=== PATIENT | female | born 1940 | race Caucasian/White ===

== ENCOUNTER 2018-09-24 06:48 | Day surgery (SDC) | payer MEDICARE, OTHER ==
[2018-09-24] MEDS ORDERED: Cefuroxime 10 MG/ML SYRINGE EYERT SCH (07:00)
[2018-09-24] MEDS ORDERED: Pilocarpine 4% Ophth Soln 15 ML Bot EYERT SCH (07:00)
[2018-09-24] MEDS ORDERED: Lidocaine 1% PF 2 ML SDV INJECT SCH (07:00)
[2018-09-24] MEDS: Polymyxin B/Trimethoprim 10 ML Bottle EYERT SCH ×3 (07:08→08:43)
[2018-09-24] MEDS: Brimonidine 0.2% Ophth Soln 5 ML Bottle EYERT SCH ×3 (07:13→08:43)
[2018-09-24] MEDS: Phenylephrine 2.5% Ophth Soln 2 ML Bot EYERT SCH ×5 (07:18→08:15)
[2018-09-24] MEDS: Tropicamide 1% Ophth Soln 15 ML Bottle EYERT SCH ×4 (07:23→08:02)
--- NOTE | 2018-09-24 07:26 | PCM.PREANE ---
Preanesthetic Assessment - Anesthesia/Transfusion/Family Hx Anesthesia History: Prior Anesthesia Without Reaction Family History of Anesthesia Reaction: No Transfusion History: Prior Transfusion Without Reaction - Review of Systems General: No Symptoms Pulmonary: No Symptoms Cardiovascular: No Symptoms Gastrointestinal: No Symptoms Neurological: No Symptoms Other: Reports: None - Physical Assessment NPO Status Date: 09/23/18 NPO Status Time: 19:00 Pulse: 92 O2 Sat by Pulse Oximetry: 92 Respiratory Rate: 16 Blood Pressure: 120/47 Temperature: 97.1 C Vital Signs: Last Vital Signs Temp 36.2 C 09/24/18 07:00 Pulse 57 L 09/24/18 07:00 Resp 16 09/24/18 07:00 BP 120/47 L 09/24/18 07:00 Pulse Ox 92 L 09/24/18 07:00 Height: 1.68 m Weight: 61.235 kg ASA Class: 2 Mental Status: Alert & Oriented x3 Airway Class: Mallampati = 2 Dentition: Reports: Normal Dentition Thyro-Mental Finger Breadths: 3 Mouth Opening Finger Breadths: 3 Lungs: Clear to Auscultation, Normal Respiratory Effort Cardiovascular: Regular Rate, Regular Rhythm - Allergies Allergies/Adverse Reactions: Allergies Allergy/AdvReac Type Severity Reaction Status Date / Time No Known Allergies Allergy Verified 09/23/18 15:38 - Anesthesia Plan Beta Carol: Metoprolol - Acknowledgements Anesthesia Type Planned: MAC Pt an Appropriate Candidate for the Planned Anesthesia: Yes Alternatives and Risks of Anesthesia Discussed w Pt/Guardian: Yes Pt/Guardian Understands and Agrees with Anesthesia Plan: Yes PreAnesthesia Questionnaire HEENT History: Reports: Cataract, Glaucoma Cardiovascular History: Reports: Afib, Hypertension Respiratory History: Reports: None Gastrointestinal History: Reports: None Genitourinary History: Reports: None Musculoskeletal History: Reports: None Neurological History: Reports: 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) Psychiatric History: Reports: None Endocrine/Metabolic History: Reports: None Hematologic History: Reports: None Immunologic History: Reports: None Oncologic (Cancer) History: Reports: None, Other (See Below) (melanoma 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) Dermatologic History: Reports: None - Past Surgical History Head Surgeries/Procedures: Reports: None HEENT Surgical History: Reports: Cataract Surgery GI Surgical History: Reports: Appendectomy Female Surgical History: Reports: Hysterectomy - SUBSTANCE USE Smoking Status *Q: Never Smoker - HOME MEDS Home Medications: Home Meds Furosemide [Lasix] 40 mg PO DAILY #60 tablet 09/26/16 [Rx] Metoprolol Succinate 50 mg PO DAILY #30 tab.er.24h 09/26/16 [Rx] Latanoprost 1 drop EYEBOTH BEDTIME 08/19/18 [History] Potassium Chloride [Klor-Con M20] 20 meq PO DAILY 08/19/18 [History] Simvastatin 10 mg PO BEDTIME 08/19/18 [History] Warfarin Sodium [Jantoven] 2 mg PO MOWEFRSA 08/19/18 [History] Warfarin Sodium [Jantoven] 4 mg PO SUTUTH 08/19/18 [History] Losartan [Cozaar] 25 mg PO DAILY 09/24/18 [History] - CURRENT (IN HOUSE) MEDS Current Meds: Current Medications Brimonidine Tartrate (Alphagan 0.2% Ophth Soln) 0 ml EYERT ASDIRECTED BRIDGET Stop: 09/24/18 18:00 Last Admin: 09/24/18 07:13 Dose: 1 drop Cefuroxime Sodium (Zinacef) 0 mg EYERT ASDIRECTED BRIDGET Stop: 09/24/18 18:00 Lidocaine HCl (Xylocaine-Mpf 1%) 1 ml INJECT ASDIRECTED BRIDGET Stop: 09/24/18 18:00 Phenylephrine HCl (Justin-Synephrine 2.5% Ophth Soln) 0 ml EYERT ASDIRECTED BRIDGET Stop: 09/24/18 18:00 Last Admin: 09/24/18 07:18 Dose: 1 drop Pilocarpine HCl (Pilocar 4% Ophth Soln) 0 ml EYERT ASDIRECTED BRIDGET Stop: 09/24/18 18:00 Polymyxin/Trimethoprim Sulfate (Polytrim Ophth Soln) 0 ml EYERT ASDIRECTED BRIDGET Stop: 09/24/18 18:00 Last Admin: 09/24/18 07:08 Dose: 1 drop Tetracaine HCl (Tetracaine 0.5% Steri-Unit Kasia) 0 ml EYERT ASDIRECTED BRIDGET Stop: 09/24/18 18:00 Tropicamide (Mydriacyl 1% Ophth Soln) 0 ml EYERT ASDIRECTED BRIDGET Stop: 09/24/18 18:00
[2018-09-24] MEDS: Tetracaine HCl/PF 0.5% 4 ML Bottle EYERT SCH ×2 (08:06→08:32)
--- NOTE | 2018-09-24 08:46 | PCM48HPAN ---
Post Anesthesia Note - EVALUATION WITHIN 48HRS OF ANESTHETIC Vital Signs in Normal Range: Yes Patient Participated in Evaluation: Yes Respiratory Function Stable: Yes Airway Patent: Yes Cardiovascular Function Stable: Yes Hydration Status Stable: Yes Pain Control Satisfactory: Yes Nausea and Vomiting Control Satisfactory: Yes Mental Status Recovered: Yes Pulse Rate: 66 SaO2: 96 Resp Rate: 13 Temperature: 97.1 C Blood Pressure: 125/62
[2018-09-24 09:05] VITALS: BP 129/55
== END 2018-09-24 08:54 | disposition home or self-care (01) ==
LOC: JD.SDS 06:48
PROVIDERS: ATTEND Ophthalmology
DX: H25.811 Combined forms of age-related cataract, right eye (principal); I10 Essential (primary) hypertension; I69.928 Other speech and language deficits following unspecified cerebrovascular disease; I48.91 Unspecified atrial fibrillation; E78.00 Pure hypercholesterolemia, unspecified; Z98.42 Cataract extraction status, left eye; Z96.1 Presence of intraocular lens; Z79.01 Long term (current) use of anticoagulants; Z79.899 Other long term (current) drug therapy
CPT/HCPCS: 66984; A9270; J0697; C1780; J2001

== ENCOUNTER → 2021-01-18 | Day surgery (SDC) | payer MEDICARE, BC ==
[2021-01-18] MEDS: Brimonidine 0.2% Ophth Soln 5 ML Bottle EYEBOTH SCH ×2 (07:37→08:28)
[2021-01-18] MEDS: Phenylephrine 2.5% Ophth Soln 2 ML Bot EYEBOTH SCH ×2 (07:42→07:52)
[2021-01-18] MEDS: Tropicamide 1% Ophth Soln 15 ML Bottle EYEBOTH SCH ×2 (07:47→07:57)
[2021-01-18 14:38] VITALS: BP 107/65; PULSE 70
== END ==
LOC: JD.SDS 07:20
PROVIDERS: ATTEND Ophthalmology
DX: H26.493 Other secondary cataract, bilateral (principal); Z96.1 Presence of intraocular lens; H40.1434 Capsular glaucoma with pseudoexfoliation of lens, bilateral, indeterminate stage; H16.223 Keratoconjunctivitis sicca, not specified as Sjogren's, bilateral; E78.00 Pure hypercholesterolemia, unspecified; I10 Essential (primary) hypertension; Z86.73 Personal history of transient ischemic attack (TIA), and cerebral infarction without residual deficits; Z90.49 Acquired absence of other specified parts of digestive tract; Z79.899 Other long term (current) drug therapy

== ENCOUNTER 2021-10-02 08:36 | Emergency (ER) | payer BC, MEDICARE ==
[2021-10-02 09:00] VITALS: BP 100/67; PULSE 92
[2021-10-02] MEDS ORDERED: Ondansetron 4 MG/2 ML SDV IVPUSH ONE ×2 (09:17→16:04)
[2021-10-02] MEDS ORDERED: Sodium Chloride 0.9% 10 ML Syringe FLUSH PRN (09:17)
[2021-10-02] MEDS ORDERED: Sodium Chloride 0.9% 1,000 ML IV SCH ×2 (09:30→11:30)
[2021-10-02 10:37] LABS: CORONAVIRUS COVID-19 NAA POSITIVE (NEGATIVE)
[2021-10-02] MEDS ORDERED: Ondansetron 4 MG/2 ML SDV ONE (15:56)
== END 2021-10-02 16:00 ==
LOC: JD.ED 08:36
DX: U07.1 COVID-19 (principal); N28.9 Disorder of kidney and ureter, unspecified; E86.0 Dehydration; I48.11 Longstanding persistent atrial fibrillation; I10 Essential (primary) hypertension; Z86.73 Personal history of transient ischemic attack (TIA), and cerebral infarction without residual deficits; Z79.01 Long term (current) use of anticoagulants; Z79.899 Other long term (current) drug therapy; Z20.822 Contact with and (suspected) exposure to COVID-19
CPT/HCPCS: 0241U; 36415; 71045; 74176; 80053; 81001; 83690; 83735; 84484; 85025; 85610; 85730; 86140; 87086; 87088; 87186; 93005; 96374; 96376; 99285; J2405; J7030; 93010

== ENCOUNTER 2023-05-23 13:16 | Inpatient (IN) | payer MEDICARE, BC ==
[2023-05-23] MEDS ORDERED: Sodium Chloride 0.9% 10 ML Syringe FLUSH PRN (13:41)
[2023-05-23] MEDS ORDERED: Diltiazem 25 MG/5 ML SDV IVPUSH ONE (13:44)
[2023-05-23] MEDS ORDERED: Sodium Chloride 0.9% 1,000 ML IV SCH ×2 (13:45→15:30)
[2023-05-23] MEDS: Diltiazem 125 MG in Sodium Chloride 0.9% 100 ML IV SCH (14:29)
[2023-05-23 14:33] LABS: BASOPHILS ABSOLUTE AUTO 0.3 K/mm3 (0.0-0.2); BASOPHILS PERCENT AUTO 1.6 % (0.0-1.0); EOSINOPHILS PERCENT AUTO 0.2 % (0.0-6.0); HEMATOCRIT 32.6 % (37.0-47.0); HEMOGLOBIN 9.7 gm/dl (12.0-16.0); IMMATURE GRAN ABSOLUTE AUTO 2.37 K/mm3 (0.00-0.05); IMMATURE GRAN PERCENT AUTO 12.4 % (0.0-0.4); LYMPHOCYTES ABSOLUTE AUTO 0.2 K/mm3 (1.0-4.8); LYMPHOCYTES PERCENT AUTO 1.3 % (24.0-44.0); MEAN CORPUSCULAR HEMOGLOBIN 22.9 pg (28.0-32.0); MEAN CORPUSCULAR HGB CONC 29.8 g/dl (32.0-36.0); MEAN CORPUSCULAR VOLUME 76.9 fl (83.0-99.0); MONOCYTES ABSOLUTE AUTO 3.7 K/mm3 (0.0-0.8); MONOCYTES PERCENT AUTO 19.2 % (0.0-8.0); NEUTROPHILS ABSOLUTE AUTO 12.5 K/mm3 (1.8-7.7); NEUTROPHILS PERCENT AUTO 65.3 % (41.0-71.0); NRBC ABSOLUTE 7.69 (0.00-0.02); NRBC PERCENT 40.3 % (0.0-0.2); PLATELET COUNT,PLT 39 K/mm3 (150-400); RED BLOOD CELL COUNT 4.24 M/mm3 (4.10-5.30); WHITE BLOOD CELL COUNT,WBC 19.08 K/mm3 (3.9-11.3)
[2023-05-23 14:58] LABS: INR 4.65; PROTHROMBIN TIME 44.4 SECONDS (9.7-12.0)
[2023-05-23 14:59] LABS: PTT,PARTIAL THROMBOPLSTIN TIME 42.7 SECONDS (21.7-31.4)
[2023-05-23 15:02] LABS: A/G RATIO 0.6 (1-2); ALBUMIN 2.7 g/dl (3.4-5.0); ANION GAP 18.6 (5-15); BILIRUBIN TOTAL 0.8 mg/dL (0.2-1.0); C-REACTIVE PROTEIN 8.8 mg/dL (<1.0); CREATININE 1.5 mg/dL (0.55-1.02); EST CRCL DRUG DOSING (CG) 24.99 mL/min; MAGNESIUM 2.1 mg/dL (1.8-2.4); POTASSIUM,K 5.6 mEq/L (3.5-5.1); PROTEIN TOTAL,TP 7.2 g/dl (6.4-8.2)
[2023-05-23 15:12] LABS: LACTIC ACID 3.6 mmol/L (0.4-2.0)
[2023-05-23] MEDS ORDERED: cefTRIAXone 2 GM in Sodium Chloride 0.9% 100 ML IV ONE (15:14)
[2023-05-23 15:17] LABS: APPEARANCE,URINE CLEAR (Clear); BILIRUBIN,URINE NEGATIVE (Negative); COLOR,URINE YELLOW (Yellow); GLUCOSE,URINE NEGATIVE (Negative); KETONES,URINE NEGATIVE (Negative); LEUKOCYTE ESTERASE,URINE NEGATIVE (Negative); NITRITE,URINE NEGATIVE (Negative); OCCULT BLOOD,URINE TRACE-LYSED (Negative); PH,URINE 5.5 (5.0-8.0); PROTEIN,URINE 1+ (Negative); UROBILINOGEN,URINE 0.2 (0.2-1.0)
[2023-05-23 15:26] LABS: CORONAVIRUS COVID-19 NAA NEGATIVE (NEGATIVE); INFLUENZA A NAA NEGATIVE (NEGATIVE); RESPIRATORY SYNCYTIAL VIR NAA NEGATIVE (NEGATIVE)
[2023-05-23 15:27] LABS: BACTERIA,URINE MODERATE /hpf (FEW); MUCUS,URINE FEW /hpf (FEW); RBC,URINE 0-5 /hpf (0-5); WBC,URINE 0-5 /hpf (0-5)
[2023-05-23 15:48] LABS: SLIDE REVIEW ABNORMAL SMEAR
[2023-05-23] MEDS ORDERED: Piperacillin/Tazobactam 4.5 GM in Sodium Chloride 0.9% 100 ML IV ONE (16:05)
[2023-05-23] MEDS ORDERED: Ondansetron 4 MG/2 ML SDV IV PRN (17:52)
[2023-05-23] MEDS: Metoprolol Tartrate 25 MG Tab PO SCH (18:10)
[2023-05-23 21:47] LABS: LACTIC ACID 1.4 mmol/L (0.4-2.0)
[2023-05-23] MEDS: Piperacillin/Tazobactam 4.5 GM in Sodium Chloride 0.9% 100 ML IV SCH (22:30)
[2023-05-24] MEDS: Metoprolol Tartrate 25 MG Tab PO SCH ×3 (00:23→11:38)
[2023-05-24] MEDS: Diltiazem 125 MG in Sodium Chloride 0.9% 100 ML IV SCH (01:20)
[2023-05-24] MEDS: Piperacillin/Tazobactam 4.5 GM in Sodium Chloride 0.9% 100 ML IV SCH ×3 (05:38→21:03)
[2023-05-24 06:00] LABS: HEMATOCRIT 27.7 % (37.0-47.0); HEMOGLOBIN 8.3 gm/dl (12.0-16.0); MEAN CORPUSCULAR HEMOGLOBIN 23.1 pg (28.0-32.0); MEAN CORPUSCULAR VOLUME 76.9 fl (83.0-99.0); NRBC PERCENT 36.1 % (0.0-0.2); PLATELET COUNT,PLT 32 K/mm3 (150-400); WHITE BLOOD CELL COUNT,WBC 17.73 K/mm3 (3.9-11.3)
[2023-05-24 06:19] LABS: INR 4.18; PROTHROMBIN TIME 40.2 SECONDS (9.7-12.0)
[2023-05-24 06:37] LABS: ANION GAP 13.6 (5-15); BUN/CREATININE RATIO 16.9 (14-18); C-REACTIVE PROTEIN 7.4 mg/dL (<1.0); CALCIUM 8.2 mg/dL (8.5-10.1); CREATININE 1.3 mg/dL (0.55-1.02); EST CRCL DRUG DOSING (CG) 30.16 mL/min; POTASSIUM,K 4.6 mEq/L (3.5-5.1)
[2023-05-24] MEDS ORDERED: Furosemide 20 MG/2 ML VIAL IVPUSH ONE ×2 (08:00→15:26)
[2023-05-24] MEDS ORDERED: Metoprolol Tartrate 25 MG Tab PO ONE (15:26)
[2023-05-24] MEDS: Acetaminophen 325 MG Tab PO PRN (15:42)
[2023-05-24] MEDS ORDERED: Warfarin Sliding Scale PO SCH (18:00)
[2023-05-24] MEDS: Metoprolol Tartrate 50 MG Tab PO SCH (18:33)
[2023-05-24] MEDS ORDERED: Sodium Chloride 0.9% 250 ML IV ONE (19:25)
[2023-05-24] MEDS: Latanoprost 0.005% Ophth Soln 2.5 ML Bottle EYEBOTH SCH (21:03)
[2023-05-25] MEDS: Metoprolol Tartrate 50 MG Tab PO SCH ×2 (00:01→06:11)
[2023-05-25] MEDS: Acetaminophen 325 MG Tab PO PRN (01:57)
[2023-05-25 05:29] LABS: ANION GAP 11.5 (5-15); BUN/CREATININE RATIO 16.9 (14-18); C-REACTIVE PROTEIN 5.7 mg/dL (<1.0); CREATININE 1.3 mg/dL (0.55-1.02); EST CRCL DRUG DOSING (CG) 30.16 mL/min; POTASSIUM,K 3.5 mEq/L (3.5-5.1)
[2023-05-25 05:31] LABS: HEMATOCRIT 28.2 % (37.0-47.0); HEMOGLOBIN 8.5 gm/dl (12.0-16.0); MEAN CORPUSCULAR HEMOGLOBIN 23.2 pg (28.0-32.0); MEAN CORPUSCULAR HGB CONC 30.1 g/dl (32.0-36.0); MEAN CORPUSCULAR VOLUME 76.8 fl (83.0-99.0); NRBC ABSOLUTE 6.52 (0.00-0.02); NRBC PERCENT 39.1 % (0.0-0.2); PLATELET COUNT,PLT 27 K/mm3 (150-400); RED BLOOD CELL COUNT 3.67 M/mm3 (4.10-5.30); WHITE BLOOD CELL COUNT,WBC 16.67 K/mm3 (3.9-11.3)
[2023-05-25 06:06] LABS: INR 2.59; PROTHROMBIN TIME 25.8 SECONDS (9.7-12.0)
[2023-05-25] MEDS: Piperacillin/Tazobactam 4.5 GM in Sodium Chloride 0.9% 100 ML IV SCH ×3 (06:11→21:44)
[2023-05-25] MEDS ORDERED: Metoprolol Tartrate 25 MG Tab PO SCH (08:15)
[2023-05-25] MEDS: Metoprolol Tartrate 25 MG Tab PO SCH ×3 (12:08→23:41)
[2023-05-25] MEDS ORDERED: Warfarin 4 MG Tab PO SCH (18:00)
[2023-05-25] MEDS: Latanoprost 0.005% Ophth Soln 2.5 ML Bottle EYEBOTH SCH (21:29)
[2023-05-26 05:39] LABS: HEMATOCRIT 27.1 % (37.0-47.0); MEAN CORPUSCULAR HEMOGLOBIN 22.7 pg (28.0-32.0); MEAN CORPUSCULAR HGB CONC 29.5 g/dl (32.0-36.0); NRBC ABSOLUTE 6.51 (0.00-0.02); PLATELET COUNT,PLT 27 K/mm3 (150-400); RED BLOOD CELL COUNT 3.52 M/mm3 (4.10-5.30); WHITE BLOOD CELL COUNT,WBC 15.13 K/mm3 (3.9-11.3)
[2023-05-26 05:41] LABS: ANION GAP 11.7 (5-15); BUN/CREATININE RATIO 21.7 (14-18); C-REACTIVE PROTEIN 4.5 mg/dL (<1.0); CALCIUM 8.3 mg/dL (8.5-10.1); CREATININE 1.2 mg/dL (0.55-1.02); EST CRCL DRUG DOSING (CG) 30.86 mL/min; POTASSIUM,K 3.7 mEq/L (3.5-5.1)
[2023-05-26] MEDS: Piperacillin/Tazobactam 4.5 GM in Sodium Chloride 0.9% 100 ML IV SCH ×3 (05:58→21:29)
[2023-05-26] MEDS: Metoprolol Tartrate 25 MG Tab PO SCH ×3 (05:59→17:45)
[2023-05-26 06:00] LABS: INR 2.2; PROTHROMBIN TIME 22.2 SECONDS (9.7-12.0)
[2023-05-26] MEDS ORDERED: Furosemide 20 MG/2 ML VIAL IVPUSH ONE (08:00)
[2023-05-26 10:38] LABS: RETICULOCYTE COUNT PERCENT 5.28 % (0.50-2.00)
[2023-05-26 11:32] LABS: BAND PERCENT MAN 13 % (0-10); BASOPHILS PERCENT MAN 0 (0.1-1.2); EOSINOPHILS PERCENT MAN 0 % (0.7-5.8); LYMPHOCYTES % ATYPICAL MANUAL 2 %; LYMPHOCYTES PERCENT MAN 10 % (20-40); METAMYELOCYTE PERCENT MAN 13; MONOCYTES PERCENT MAN 23 % (2-10); MYELOCYTE PERCENT MAN 8
[2023-05-26 11:36] LABS: ANISOCYTOSIS 2+ MODERATE
[2023-05-26 11:37] LABS: HYPOCHROMASIA 2+ MODERATE; MICROCYTOSIS 2+ MODERATE; OVALOCYTES 2+ MODERATE; POIKILOCYTOSIS 2+ MODERATE; POLYCHROMASIA 2+ MODERATE; SPHEROCYTES 1+ SLIGHT; TARGET CELLS 1+ SLIGHT; TEARDROP CELLS 1+ SLIGHT
[2023-05-26 11:38] LABS: PLATELET COUNT ESTIMATE MARKED DEC
[2023-05-26] MEDS ORDERED: Warfarin 3 MG Tab PO SCH (18:00)
[2023-05-26] MEDS: Latanoprost 0.005% Ophth Soln 2.5 ML Bottle EYEBOTH SCH (21:34)
[2023-05-26] MEDS: Potassium Chloride 10 MEQ Tab.ER PO SCH (21:34)
[2023-05-27] MEDS: Metoprolol Tartrate 25 MG Tab PO SCH ×2 (01:22→08:01)
[2023-05-27 05:25] LABS: ANION GAP 10.6 (5-15); BUN/CREATININE RATIO 21.5 (14-18); C-REACTIVE PROTEIN 3.1 mg/dL (<1.0); CALCIUM 8.1 mg/dL (8.5-10.1); CREATININE 1.3 mg/dL (0.55-1.02); EST CRCL DRUG DOSING (CG) 28.49 mL/min; POTASSIUM,K 3.6 mEq/L (3.5-5.1)
[2023-05-27 05:28] LABS: BASOPHILS ABSOLUTE AUTO 0.2 K/mm3 (0.0-0.2); BASOPHILS PERCENT AUTO 1.4 % (0.0-1.0); EOSINOPHILS ABSOLUTE AUTO 0.1 K/mm3 (0.0-0.4); EOSINOPHILS PERCENT AUTO 0.9 % (0.0-6.0); HEMATOCRIT 27.6 % (37.0-47.0); HEMOGLOBIN 8.2 gm/dl (12.0-16.0); IMMATURE GRAN ABSOLUTE AUTO 1.75 K/mm3 (0.00-0.05); IMMATURE GRAN PERCENT AUTO 12.4 % (0.0-0.4); LYMPHOCYTES ABSOLUTE AUTO 0.9 K/mm3 (1.0-4.8); LYMPHOCYTES PERCENT AUTO 6.3 % (24.0-44.0); MEAN CORPUSCULAR HEMOGLOBIN 22.8 pg (28.0-32.0); MEAN CORPUSCULAR HGB CONC 29.7 g/dl (32.0-36.0); MEAN CORPUSCULAR VOLUME 76.7 fl (83.0-99.0); MONOCYTES PERCENT AUTO 28.7 % (0.0-8.0); NEUTROPHILS ABSOLUTE AUTO 7.1 K/mm3 (1.8-7.7); NEUTROPHILS PERCENT AUTO 50.3 % (41.0-71.0); NRBC ABSOLUTE 6.62 (0.00-0.02); NRBC PERCENT 47.1 % (0.0-0.2); PLATELET COUNT,PLT 31 K/mm3 (150-400); WHITE BLOOD CELL COUNT,WBC 14.07 K/mm3 (3.9-11.3)
[2023-05-27 05:58] LABS: INR 2.7; PROTHROMBIN TIME 26.8 SECONDS (9.7-12.0)
[2023-05-27 06:02] LABS: SLIDE REVIEW ABNORMAL SMEAR
[2023-05-27] MEDS: Piperacillin/Tazobactam 4.5 GM in Sodium Chloride 0.9% 100 ML IV SCH (06:15)
[2023-05-27] MEDS: Potassium Chloride 10 MEQ Tab.ER PO SCH ×2 (08:01→21:04)
[2023-05-27] MEDS ORDERED: Levofloxacin/Dextrose 5%-Water 500 MG in Premix Bag 1 BAG IV ONE (09:30)
[2023-05-27] MEDS: Furosemide 40 MG/4 ML VIAL IVPUSH SCH (10:04)
[2023-05-27] MEDS ORDERED: Metoprolol Succinate 50 MG Tab.ER PO ONE (14:00)
[2023-05-27] MEDS: Metoprolol Succinate 50 MG Tab.ER PO SCH (21:04)
[2023-05-27] MEDS: Latanoprost 0.005% Ophth Soln 2.5 ML Bottle EYEBOTH SCH (21:07)
[2023-05-28 05:29] LABS: ANION GAP 11.5 (5-15); BUN/CREATININE RATIO 23.3 (14-18); C-REACTIVE PROTEIN 2.6 mg/dL (<1.0); CALCIUM 8.1 mg/dL (8.5-10.1); CREATININE 1.2 mg/dL (0.55-1.02); EST CRCL DRUG DOSING (CG) 31.69 mL/min; POTASSIUM,K 3.5 mEq/L (3.5-5.1)
[2023-05-28 05:34] LABS: BASOPHILS ABSOLUTE AUTO 0.2 K/mm3 (0.0-0.2); BASOPHILS PERCENT AUTO 1.2 % (0.0-1.0); EOSINOPHILS PERCENT AUTO 0.2 % (0.0-6.0); HEMATOCRIT 26.8 % (37.0-47.0); IMMATURE GRAN ABSOLUTE AUTO 1.87 K/mm3 (0.00-0.05); IMMATURE GRAN PERCENT AUTO 12.2 % (0.0-0.4); LYMPHOCYTES ABSOLUTE AUTO 0.9 K/mm3 (1.0-4.8); LYMPHOCYTES PERCENT AUTO 6.1 % (24.0-44.0); MEAN CORPUSCULAR HEMOGLOBIN 22.9 pg (28.0-32.0); MEAN CORPUSCULAR HGB CONC 29.9 g/dl (32.0-36.0); MEAN CORPUSCULAR VOLUME 76.8 fl (83.0-99.0); MONOCYTES ABSOLUTE AUTO 5.1 K/mm3 (0.0-0.8); MONOCYTES PERCENT AUTO 33.5 % (0.0-8.0); NEUTROPHILS ABSOLUTE AUTO 7.1 K/mm3 (1.8-7.7); NEUTROPHILS PERCENT AUTO 46.8 % (41.0-71.0); NRBC ABSOLUTE 6.53 (0.00-0.02); NRBC PERCENT 42.8 % (0.0-0.2); PLATELET COUNT,PLT 26 K/mm3 (150-400); RED BLOOD CELL COUNT 3.49 M/mm3 (4.10-5.30); WHITE BLOOD CELL COUNT,WBC 15.27 K/mm3 (3.9-11.3)
[2023-05-28 06:02] LABS: INR 3.3; PROTHROMBIN TIME 32.3 SECONDS (9.7-12.0)
[2023-05-28] MEDS: Metoprolol Succinate 50 MG Tab.ER PO SCH ×2 (08:00→20:44)
[2023-05-28] MEDS: Potassium Chloride 10 MEQ Tab.ER PO SCH (08:01)
[2023-05-28] MEDS: Levofloxacin/Dextrose 5%-Water 250 MG in Premix Bag 1 BAG IV SCH (08:23)
[2023-05-28] MEDS: Furosemide 40 MG/4 ML VIAL IVPUSH SCH (08:24)
[2023-05-28 09:15] LABS: RETICULOCYTE COUNT PERCENT 4.14 % (0.50-2.00)
[2023-05-28 10:00] LABS: SLIDE REVIEW ABNORMAL SMEAR
[2023-05-28] MEDS ORDERED: Warfarin Sliding Scale PO SCH (18:00)
[2023-05-28] MEDS: Latanoprost 0.005% Ophth Soln 2.5 ML Bottle EYEBOTH SCH (20:44)
[2023-05-28] MEDS: Acetaminophen 325 MG Tab PO PRN (22:45)
[2023-05-29 05:30] LABS: BASOPHILS ABSOLUTE AUTO 0.2 K/mm3 (0.0-0.2); BASOPHILS PERCENT AUTO 1.4 % (0.0-1.0); EOSINOPHILS ABSOLUTE AUTO 0.1 K/mm3 (0.0-0.4); EOSINOPHILS PERCENT AUTO 0.5 % (0.0-6.0); HEMATOCRIT 27.1 % (37.0-47.0); IMMATURE GRAN ABSOLUTE AUTO 1.72 K/mm3 (0.00-0.05); IMMATURE GRAN PERCENT AUTO 12.2 % (0.0-0.4); LYMPHOCYTES ABSOLUTE AUTO 0.7 K/mm3 (1.0-4.8); LYMPHOCYTES PERCENT AUTO 4.7 % (24.0-44.0); MEAN CORPUSCULAR HEMOGLOBIN 22.6 pg (28.0-32.0); MEAN CORPUSCULAR HGB CONC 29.5 g/dl (32.0-36.0); MEAN CORPUSCULAR VOLUME 76.6 fl (83.0-99.0); MONOCYTES ABSOLUTE AUTO 3.9 K/mm3 (0.0-0.8); MONOCYTES PERCENT AUTO 27.3 % (0.0-8.0); NEUTROPHILS ABSOLUTE AUTO 7.6 K/mm3 (1.8-7.7); NEUTROPHILS PERCENT AUTO 53.9 % (41.0-71.0); NRBC ABSOLUTE 5.09 (0.00-0.02); RED BLOOD CELL COUNT 3.54 M/mm3 (4.10-5.30); WHITE BLOOD CELL COUNT,WBC 14.15 K/mm3 (3.9-11.3)
[2023-05-29 05:44] LABS: PLATELET COUNT,PLT 25 K/mm3 (150-400)
[2023-05-29 05:55] LABS: ANION GAP 9.6 (5-15); BUN/CREATININE RATIO 25.8 (14-18); CALCIUM 8.6 mg/dL (8.5-10.1); CREATININE 1.2 mg/dL (0.55-1.02); EST CRCL DRUG DOSING (CG) 32.67 mL/min; POTASSIUM,K 3.6 mEq/L (3.5-5.1)
[2023-05-29 05:59] LABS: INR 2.11; PROTHROMBIN TIME 21.4 SECONDS (9.7-12.0)
[2023-05-29] MEDS: Levofloxacin/Dextrose 5%-Water 250 MG in Premix Bag 1 BAG IV SCH (08:09)
[2023-05-29] MEDS: Metoprolol Succinate 50 MG Tab.ER PO SCH (08:09)
[2023-05-29] MEDS: Furosemide 40 MG/4 ML VIAL IVPUSH SCH (08:09)
[2023-05-29 08:16] VITALS: BP 128/89
[2023-05-29 08:47] LABS: BASO STIP Seen (Absent); HYPOCHRO 3+ /hpf; MICRO 2+ /hpf; NEUTROPHILS% 10 % (41-71); OVALOCYTE 2+ /hpf; TOXIC GRAN Seen (Absent)
[2023-05-29 09:07] LABS: SLIDE REVIEW ABNORMAL SMEAR
[2023-05-29 14:00] VITALS: PULSE 89
[2023-05-30 17:47] LABS: GLYCOPROTEIN IV AB Negative (Negative); HLA CLASS 1 AB Negative (Negative); IA/IIA ANTIBODY Negative (Negative); IB/IX ANTIBODY Negative (Negative); IIB/IIIA ANTIBODY Negative (Negative)
== END 2023-05-29 13:55 | DRG 871 ==
LOC: JD.ED 13:16 → JD.ICU 15:34
PROVIDERS: ADMIT Internal Medicine; ATTEND Internal Medicine
DX: A41.51 Sepsis due to Escherichia coli [E. coli] (principal); I50.23 Acute on chronic systolic (congestive) heart failure; J96.01 Acute respiratory failure with hypoxia; J98.11 Atelectasis; N10 Acute pyelonephritis; E87.20 Acidosis, unspecified; I48.20 Chronic atrial fibrillation, unspecified; R65.20 Severe sepsis without septic shock; Z66 Do not resuscitate; I11.0 Hypertensive heart disease with heart failure; A41.9 Sepsis, unspecified organism; E86.0 Dehydration; E87.5 Hyperkalemia; H40.9 Unspecified glaucoma; I34.2 Nonrheumatic mitral (valve) stenosis; G31.84 Mild cognitive impairment of uncertain or unknown etiology; D69.6 Thrombocytopenia, unspecified; D64.89 Other specified anemias; Z88.0 Allergy status to penicillin; Z79.2 Long term (current) use of antibiotics; Z87.01 Personal history of pneumonia (recurrent); Z20.822 Contact with and (suspected) exposure to COVID-19; Z86.16 Personal history of COVID-19; Z98.49 Cataract extraction status, unspecified eye; Z90.49 Acquired absence of other specified parts of digestive tract; Z90.710 Acquired absence of both cervix and uterus; I48.91 Unspecified atrial fibrillation; I10 Essential (primary) hypertension; Z79.01 Long term (current) use of anticoagulants; Z79.899 Other long term (current) drug therapy; Z86.73 Personal history of transient ischemic attack (TIA), and cerebral infarction without residual deficits
CPT/HCPCS: 0241U; 36415; 71045; 71045-26; 80048; 80053; 81001; 82728; 83540; 83605; 83735; 84443; 84484; 85007; 85025; 85027; 85045; 85362; 85610; 85730; 86022; 86140; 87040; 87086; 93005; 93010; 96361; 96374; 97110-GP; 97162-GP; 97530-GP; 99285; 99285-25; A9270-GY; J0696; J1940; J1956; J2543; J3490; J7030